=== PATIENT | female | born 1935 | race Caucasian/White ===

== ENCOUNTER → 2017-10-12 | Outpatient (CLI) | payer MEDICARE, BC ==
[~2017-10-12] MED LIST: ALEV220T14 PO; ALPH200C3 PO; ALPH600C PO; ASPI-183 PO; ASPI325T33 PO; BOSW5TAB PO; CARV12.52 OR; CARV12.52 PO; CARV6.252 OR; CARV6.252 PO; COMMODE 3-IN-11 MIS; DIAZ5TAB PO; DOCU1CAP39 PO; EZET10 PO; FISH500C PO; FOLI800T PO; GABA300C3 PO; GABA300C5 PO; GLUCTAB OR; HYDR-3583 PO; LISI10TA3 PO; MAGN250T11 PO; MAGN500T4 PO; METF500T PO; MULT-116 PO; MULT-65 PO; MULT1TAB46 PO; NAPR1TAB98 PO; NORC7.5T PO; POLY17S PO; PROBCAP15 PO; RIVA10 PO; VITA200017 PO; WALKER WHEELS/F1 MIS; Z.0.COMMODE-3:1; Z.0.WALKERFRONT; [UNRECOGNIZED DRUG - CODE] PO
[2017-10-12 08:42] LABS: AUTOMATED NEUTROPHIL # 4.2 TH/MM3 (1.8-7.7); BASOPHIL # 0.2 TH/MM3 (0-0.2); BASOPHIL % 2.5 % (0.0-2.0); EOSINOPHIL # 0.5 TH/MM3 (0-0.4); EOSINOPHIL % 7.3 % (0.0-4.0); HEMATOCRIT 39.8 % (35.0-46.0); HEMOGLOBIN 13.5 GM/DL (11.6-15.3); MEAN CELL VOLUME 89.9 FL (80.0-100.0); MEAN CORPUSCULAR HEMOGLOBIN 30.4 PG (27.0-34.0); MEAN CORPUSCULAR HGB CONC 33.9 % (32.0-36.0); MEAN PLATELET VOLUME 7.9 FL (7.0-11.0); MONO % 8.4 % (0.0-8.0); MONOCYTE # 0.5 TH/MM3 (0-0.9); NEUT % 66.8 % (16.0-70.0); PLATELET COUNT 238 TH/MM3 (150-450); RED BLOOD COUNT 4.42 MIL/MM3 (4.00-5.30); RED CELL DISTRIBUTION WIDTH 14.1 % (11.6-17.2); WHITE BLOOD COUNT 6.3 TH/MM3 (4.0-11.0)
[2017-10-12 08:43] LABS: PROTHROMBIN TIME - PATIENT 10.4 SEC (9.8-11.6)
[2017-10-12 08:57] LABS: BICARBONATE 31.5 MEQ/L (21.0-32.0); CALCIUM 8.9 MG/DL (8.5-10.1); CREATININE 0.87 MG/DL (0.50-1.00)
[2017-10-12 10:29] LABS: BILIRUBIN, URINE NEG (NEG); BLOOD, URINE NEG (NEG); GLUCOSE,URINE NEG (NEG); KETONE, URINE NEG (NEG); MUCUS URINE FEW /lpf (OCC); NITRITE,URINE NEG (NEG); PH, URINE 7.5 (5.0-8.5); URINE COLOR YELLOW (YELLW/STRAW); URINE LEUKOCYTE ESTERASE NEG (NEG)
--- NOTE | 2017-10-13 08:58 | EKG ---
Date Performed: 10/12/2017 Time Performed: 08:26:18 PTAGE: 82 years EKG: ELECTRONIC VENTRICULAR PACEMAKER ABNORMAL RHYTHM ECG PREVIOUS TRACING : 03/20/2016 09.10 DOCTOR: Micki Cantu Interpretating Date/Time 10/13/2017 08:58:14
== END ==
LOC: CPRE 07:49
PROVIDERS: ATTEND Orthopaedic Surgery Orthopaedic Surgery of the Spine
DX: Z01.812 Encounter for preprocedural laboratory examination (principal); Z01.810 Encounter for preprocedural cardiovascular examination; M16.0 Bilateral primary osteoarthritis of hip; R94.31 Abnormal electrocardiogram [ECG] [EKG]; Z95.0 Presence of cardiac pacemaker
CPT/HCPCS: 36415; 80048; 81001; 85025; 85610; 85730; 93005

== ENCOUNTER 2017-10-23 06:17 | Inpatient (IN) | payer MEDICARE, BC ==
[~2017-10-23] VITALS: Ht 167.6 cm; Wt 72.0 kg
[~2017-10-23 06:17] MED LIST changes: -ALPH200C3 PO; -ASPI325T33 PO; -BOSW5TAB PO; -CARV12.52 OR; -CARV6.252 OR; -COMMODE 3-IN-11 MIS; -DOCU1CAP39 PO; -EZET10 PO; -FISH500C PO; -GABA300C3 PO; -GLUCTAB OR; -HYDR-3583 PO; -MAGN500T4 PO; -MULT-65 PO; -NORC7.5T PO; -POLY17S PO; -RIVA10 PO; -VITA200017 PO; -WALKER WHEELS/F1 MIS; -Z.0.COMMODE-3:1; -Z.0.WALKERFRONT
[2017-10-23] MEDS ORDERED: SODIUM CHLORID 0.9% 500 ML IV PRN (07:15)
[2017-10-23] MEDS ORDERED: LACTATED RINGER'S 1000 ML IV PRN (07:15)
[2017-10-23] MEDS ORDERED: CHLORHEXIDINE GLUCONATE 2 % 1 PACK (2 CLOTHS) TOPICAL PRN (07:15)
[2017-10-23] MEDS ORDERED: ceFAZolin 2 GM PREMIX 50 ML IV SCH (07:15)
[2017-10-23] MEDS ORDERED: CHLORHEXIDINE GLUCONATE 4% SOLN 120 ML BTL TOPICAL SCH (07:15)
[2017-10-23] MEDS ORDERED: VANCOMYCIN 1 GM/200 ML PREMIX ON-CALL IV SCH (07:15)
[2017-10-23] MEDS ORDERED: METOPROLOL TARTRATE 25 MG TAB PO PRN (07:15)
[2017-10-23] MEDS ORDERED: POVIDONE IODINE 5% (ANTISEPSIS KIT) 4 APPLICATIONS EACH NARE PRN (07:15)
[2017-10-23] MEDS ORDERED: ACETAMINOPHEN 1000 MG/100 ML 100 ML IV ONE (07:48)
[2017-10-23] MEDS ORDERED: GENTAMICIN SULFATE 80 MG/2 ML VIAL ONE ×2 (08:42)
[2017-10-23] MEDS ORDERED: EXPAREL PERI-ARTICULAR INJECTION (TOTAL VOL. 60 ML) P-ARTICULR SCH ×2 (09:00)
[2017-10-23] MEDS ORDERED: SODIUM CHLORIDE 0.9% IV SCH (09:00)
[2017-10-23] MEDS ORDERED: TRANEXAMIC ACID IV SCH (09:00)
[2017-10-23] MEDS ORDERED: ceFAZolin INJ 1,000 MG VIAL ONE (09:21)
[2017-10-23] MEDS ORDERED: BUPIVACAINE/EPINEPHRINE 0.25% PF 10 ML VIAL INFIL ONE (11:05)
--- NOTE | 2017-10-23 11:33 | PD.OP ---
cc: Reg Camacho MD Operative Report Date of Surgery: October 23, 2017 Preoperative Diagnosis: Osteoarthritis right hip Postoperative Diagnosis: Same Procedure: Right total hip replacement arthroplasty, direct anterior exposure Anesthesia: General Surgeon: Reg Camacho [employer] Teacher(s): TREMAINE Peters Operation and Findings: EBL: 300 cc INDICATION: This patient presents with significant hip pain related to severe osteoarthritis of the right hip. Despite extensive conservative care this patient continues to be painful and now presents for surgical treatment. NOTE: Jaylene Peters PA-C was present for the entire surgical procedure as my assistant food service manager. In my medical opinion her skill and care was necessary for the proper management of this patient. COMPONENTS: COMPANY: [employer] CUP: [place], 50, 100 series, gription surface LINER: Altrx 32 mm, neutral STEM: [place], standard offset, size 12, hydroxyapatite-coated HEAD: 32 mm, +1, metal, 12/14 taper PROCEDURE: This patient was brought to the operating room and anesthetized in the supine position and positioned on the fracture table with both legs held extended. The right hip and leg was scrubbed with alcohol followed by Hibiclens followed by ChloraPrep and draped sterilely. Antibiotics were given within routine time window and a timeout was done. A 4 inch incision was made starting 2 cm distal and 2 cm lateral to the anterior superior iliac spine. The fascia elli was opened longitudinally. The interval between the fascia elli and the rectus was opened down to the capsule of the hip joint. Retractors were positioned allowing good visualization of the capsule. This was opened longitudinally and flaps were created. Stay sutures were utilized. Exposure was excellent. The neck was cut at the proper location using fluoroscopy as a guide. The head was removed. Deep retractors were positioned allowing good visualization of the acetabulum. Acetabulum was deepened down to the floor starting with a proper size reamer and reaming up to 49 mm. A trial was utilized. Fluoroscopy was used to check position and confirmed satisfactory alignment. The rim was reamed with a 50 mm reamer and the final cup was positioned in approximately 20 of anteversion and 40-45 of abduction. Position was satisfactory. A single hole eliminator was positioned followed by the final liner. The lifting hook was utilized. The leg was dropped to the floor, maximally externally rotated and brought across the midline. Retractors were positioned. A box osteotome was utilized followed by progressive broaching to the proper stem size. Trial reduction showed excellent alignment and fit. With 60 of external rotation the leg was dropped to the floor without evidence of anterior subluxation. The wound was irrigated. The final stem was inserted and was found to be very stable. The final reduction using the final head. Stability was as previously noted. Intraoperative x-rays were taken. The wound was irrigated copiously. Hemostasis was controlled. Local anesthesia was utilized. The capsule was repaired with #2 Tycron sutures. The fascia elli was repaired with running 0 PDS on a loop. Subcutaneous tissue was approximated with 2-0 Vicryl and skin with running intradermal 3-0 Vicryl followed by Steri-Strips. A sterile dressing was applied. The patient was awakened and taken to the recovery room in satisfactory condition. FINDINGS: There was severe osteoarthritis of the right hip. The final solution was excellent. There was no apparent complication. The hip appeared to be very stable Reg Camacho MD October 23, 2017 11:33
[2017-10-23] MEDS ORDERED: HYDR-3583 PO (11:38)
[2017-10-23] MEDS ORDERED: ASPI325T33 PO (11:38)
[2017-10-23] MEDS ORDERED: ACETAMINOPHEN/HYDROcodone 325 MG/10 MG TAB PO PRN (11:45)
[2017-10-23] MEDS ORDERED: Post-op Orders (for Pharmacy) XX ONE (11:45)
[2017-10-23] MEDS ORDERED: MORPHINE SULFATE 8 MG/ML INJ IM PRN (11:45)
[2017-10-23] MEDS ORDERED: NALOXONE HCL 0.4 MG/ML AMP IV PUSH PRN (11:45)
[2017-10-23] MEDS ORDERED: DO NOT ADM ANY ANTICOAGULANT DRUGS PRN (11:52)
[2017-10-23] MEDS ORDERED: SODIUM CHLOR 0.9% 250 ML INJ 250 ML IV ONE (12:00)
[2017-10-23] MEDS ORDERED: LACTATED RINGER'S 1000 ML INJ 1,000 ML IV ONE (12:00)
[2017-10-23] MEDS ORDERED: NEOSTIGMINE 5 MG/5 ML SYRINGE IV PUSH ONE (12:00)
[2017-10-23] MEDS ORDERED: ONDANSETRON HCL 4 MG/2 ML VIAL IV ONE (12:00)
[2017-10-23] MEDS ORDERED: PROPOFOL 200 MG/20 ML AMP IV ONE (12:00)
[2017-10-23] MEDS ORDERED: PHENYLEPHRINE HCL 10 MG/ML VIAL IV ONE (12:00)
[2017-10-23] MEDS ORDERED: ePHEDrine/NS 25 MG/5 ML SYRINGE IV ONE (12:00)
[2017-10-23] MEDS ORDERED: GLYCOPYRROLATE 1 MG/5 ML SYRINGE IV PUSH ONE (12:00)
[2017-10-23] MEDS ORDERED: KETOROLAC TROMETHAMINE 30 MG/ML (IVP) VIAL IV PUSH ONE (12:00)
[2017-10-23] MEDS ORDERED: DEXAMETHASONE SOD PHOS 4 MG/ML VIAL IV ONE (12:00)
[2017-10-23] MEDS ORDERED: ROCURONIUM INJ 50 MG/5 ML SYRINGE IV PUSH ONE (12:00)
[2017-10-23] MEDS ORDERED: LIDOCAINE HCL 1% PF 5 ML SYRINGE OTHER ONE (12:00)
[2017-10-23] MEDS ORDERED: PHENYLEPH/NS 1000 MCG/10 ML SYR IV ONE (12:00)
[2017-10-23] MEDS ORDERED: MORPHINE SULFATE 4 MG/ML INJ ONE (12:04)
[2017-10-23] MEDS ORDERED: *morphine SULFATE 4 MG/ML PERIprocedure ONLY ONE ×2 (12:11→12:58)
[2017-10-23] MEDS: LACTATED RINGER'S 1000 ML INJ 1,000 ML IV SCH (13:00)
--- NOTE | 2017-10-23 13:39 | RADRPT ---
EXAM DATE/TIME: 10/23/2017 10:21 [place] COMPARISON: No previous studies available for comparison. INDICATIONS : Right total hip replacement. MEDICAL HISTORY : None. SURGICAL HISTORY : None. ENCOUNTER: Initial ACUITY: 1 day PAIN SCORE: Non-responsive. LOCATION: Right Hip FINDINGS: 2 fluoroscopic images of the right hip demonstrate a total right hip arthroplasty. Arthroplasty compo nents appear well positioned and in anatomic alignment. No gross fracture. CONCLUSION: 1. Right hip arthroplasty, as above. Giorgio Marshall MD on October 23, 2017 at 13:36 Board Certified Radiologist. This report was verified electronically.
[2017-10-23] MEDS ORDERED: ASPIRIN 81 MG CHEW TAB CHEW ONE (14:00)
[2017-10-23 16:00] VITALS: BP 125/60; PULSE 52; RESP 18; TEMP 97.1; O2SAT 92
[2017-10-23] MEDS: metFORMIN HCL 500 MG TAB PO SCH (17:08)
[2017-10-23 20:32] VITALS: BP 125/70; PULSE 71; RESP 18; TEMP 97.6; O2SAT 94
[2017-10-23] MEDS: SENNOSIDES 8.6 MG TAB PO SCH (20:37)
[2017-10-23] MEDS: CARVEDILOL 6.25 MG TAB PO SCH (20:37)
[2017-10-23] MEDS: ASPIRIN EC 81 MG TABEC PO SCH (20:37)
[2017-10-23] MEDS: MAGNESIUM HYDROXIDE SUSP 30 ML CUP PO SCH (20:37)
[2017-10-23] MEDS ORDERED: LISINOPRIL 10 MG TAB PO SCH (21:00)
[2017-10-23] MEDS ORDERED: DIAZEPAM 5 MG TAB PO PRN (21:00)
[2017-10-23] MEDS: TEMAZEPAM 15 MG CAP PO PRN (23:32)
[2017-10-23 23:39] VITALS: BP 116/55; PULSE 74; RESP 18; TEMP 98.3; O2SAT 95
[2017-10-24] MEDS: LACTATED RINGER'S 1000 ML INJ 1,000 ML IV SCH (00:04)
[2017-10-24 05:24] VITALS: BP 100/62; PULSE 97; RESP 18; TEMP 97.9; O2SAT 96
[2017-10-24] MEDS: ACETAMINOPHEN/HYDROcodone 325 MG/10 MG TAB PO PRN ×2 (05:48→11:39)
[2017-10-24 07:02] LABS: HEMATOCRIT 31.3 % (35.0-46.0); HEMOGLOBIN 10.7 GM/DL (11.6-15.3)
[2017-10-24 08:00] VITALS: BP 101/55; PULSE 90; RESP 16; TEMP 98.7; O2SAT 91
[2017-10-24] MEDS ORDERED: WALKER WHEELS/F1 MIS (08:31)
[2017-10-24] MEDS ORDERED: COMMODE 3-IN-11 MIS (08:31)
--- NOTE | 2017-10-24 08:32 | HHI.DCPOC ---
Discharge Care Plan Diagnosis: (1) Osteoarthritis of right hip Your Health Problems Are: Difficulty with ADL Incision/Drains Swelling Goals to Promote Your Health * To prevent worsening of your condition and complications * To maintain your health at the optimal level Directions to Meet Your Goals Take your medications as prescribed Follow your dietary instruction Follow activity as directed Keep your appointments as scheduled Take your immunizations and boosters as scheduled If your symptoms worsen call your PCP, if no PCP go to Urgent Care Center or Emergency Room Smoking is Dangerous to Your Health. Avoid second hand smoke Call the 24-hour hour crisis hotline for domestic abuse at Jaylene Peters October 24, 2017 08:32
[2017-10-24] MEDS: GABAPENTIN 300 MG CAP PO SCH (08:49)
[2017-10-24] MEDS: metFORMIN HCL 500 MG TAB PO SCH ×2 (08:50→18:23)
[2017-10-24] MEDS: ASPIRIN EC 81 MG TABEC PO SCH ×2 (08:50→19:54)
[2017-10-24] MEDS: CARVEDILOL 12.5 MG TAB PO SCH (08:50)
[2017-10-24] MEDS: MAGNESIUM HYDROXIDE SUSP 30 ML CUP PO SCH ×2 (08:50→19:53)
[2017-10-24 12:00] VITALS: BP 112/66; PULSE 86; RESP 16; TEMP 97.4; O2SAT 92
--- NOTE | 2017-10-24 13:00 | PD.ORT.PN ---
Subjective Subjective Remarks Quite a bit of right hip pain last night. Patient states she did not 'sleep at all'. No new leg pain below knee. No other concerns. Prefers [facility]. No new CP or SOB. Objective Vitals Vital Signs Date Time Temp Pulse Resp B/P (MAP) Pulse Ox O2 Delivery O2 Flow Rate FiO2 10/24/17 08:00 98.7 90 16 101/55 (70) 91 10/24/17 06:48 18 10/24/17 05:24 97.9 97 18 100/62 (75) 96 10/24/17 00:32 18 10/23/17 23:39 98.3 74 18 116/55 (75) 95 10/23/17 20:32 97.6 71 18 125/70 (88) 94 10/23/17 18:49 Nasal Cannula 2.00 10/23/17 17:11 Nasal Cannula 2.00 10/23/17 16:00 97.1 52 18 125/60 (81) 92 10/23/17 14:30 97.6 63 16 116/58 (77) 97 Nasal Cannula 3 10/23/17 14:00 62 16 118/57 (77) 96 Nasal Cannula 3 10/23/17 13:03 15 10/23/17 13:00 97.6 61 16 120/56 (77) 96 Nasal Cannula 3 I/O 10/23/17 10/23/17 10/23/17 10/24/17 10/24/17 10/24/17 07:00 15:00 23:00 07:00 15:00 23:00 Intake Total 2000 ml 100 ml 460 ml Output Total 300 ml 25 ml Balance 1700 ml 75 ml 460 ml Intake Oral 360 ml IV Total 200 ml 100 ml 100 ml Other 1800 ml Output Urine Total 25 ml Estimated Blood Loss 300 ml # Voids 0 3 # Bowel Movements 0 Result Diagram: 10/24/17 0424 Objective Remarks Sitting up in bedside chair NAD VSS RLE Hip dressing c/d/i, mild swelling, no erythema, +motor at distal, +sens, +nvi Neg homans Assessment & Plan Ortho Post Op Day #: 1 Problem List: Assessment and Plan pod#1 s/p R YOSHI, anterior Pain moderately controlled. Some spasms. PT - WBAT RLE. Anterior YOSHI protocol. Hold dressing changes unless saturated. PO pain meds ASA 81mg IS encouraged. D/C planning, [facility] sunday. Jaylene Peters October 24, 2017 13:00
[2017-10-24 15:45] LABS: AUTOMATED NEUTROPHIL # 10.2 TH/MM3 (1.8-7.7); BASOPHIL # 0.1 TH/MM3 (0-0.2); BASOPHIL % 0.4 % (0.0-2.0); EOSINOPHIL # 0.1 TH/MM3 (0-0.4); EOSINOPHIL % 0.7 % (0.0-4.0); HEMATOCRIT 30.3 % (35.0-46.0); HEMOGLOBIN 10.1 GM/DL (11.6-15.3); LYMPHOCYTE # 1.3 TH/MM3 (1.0-4.8); MEAN CELL VOLUME 90.3 FL (80.0-100.0); MEAN CORPUSCULAR HEMOGLOBIN 30.2 PG (27.0-34.0); MEAN CORPUSCULAR HGB CONC 33.5 % (32.0-36.0); MEAN PLATELET VOLUME 7.9 FL (7.0-11.0); MONO % 9.3 % (0.0-8.0); MONOCYTE # 1.2 TH/MM3 (0-0.9); NEUT % 79.6 % (16.0-70.0); PLATELET COUNT 199 TH/MM3 (150-450); RED BLOOD COUNT 3.36 MIL/MM3 (4.00-5.30); RED CELL DISTRIBUTION WIDTH 14.3 % (11.6-17.2); WHITE BLOOD COUNT 12.9 TH/MM3 (4.0-11.0)
--- NOTE | 2017-10-24 15:50 | PD.CONS ---
HPI Service Family Medicine Consult Requested By Reason for Consult Medical management Primary Care Physician Violet Rosenthal M.D. History of Present Illness Patient is a 82-year-old female with past medical history of diabetes, hypertension, left bundle branch block status post defibrillator/pacemaker placement presented to [facility] for elective right hip replacement. Patient is postop day 1 from elective right total hip replacement arthroplasty. Patient seen and examined at bedside this afternoon. Patient stated right hip pain is currently 5/10, worse with movement. However she was not able to sleep due to severe right hip pain last night. Denies any chest pain, shortness of breath, nausea /vomiting. Denies any flatus, bowel movement. Patient has voided 3 times so far. Tolerating fluids well. No other complaints. (Leny Blair MD, R1) Review of Systems Constitutional: DENIES: Fever, Chills, Dizziness Endocrine: DENIES: Heat/cold intolerance Eyes: DENIES: Blurred vision, Vision loss Ears, nose, mouth, throat: DENIES: Hearing loss, Ear Pain Respiratory: DENIES: Cough, Shortness of breath Cardiovascular: DENIES: Chest pain, Palpitations, Syncope, Lower Extremity Edema Gastrointestinal: DENIES: Abdominal pain, Diarrhea, Nausea, Vomiting Genitourinary: DENIES: Urinary frequency, Dysuria Musculoskeletal: COMPLAINS OF: Joint pain, DENIES: Back pain, Neck pain Integumentary: DENIES: Rash Neurologic: COMPLAINS OF: Paresthesias (Lower extremities bilaterally, chronic) , DENIES: Headache, Localized weakness, Seizures (Leny Blair MD, R1) Past Family Social History Past Medical History Neuropathy bilaterally Hypertension Diabetes Left bundle branch block Left breast cancer, currently in remission Osteoarthritis of knees bilaterally Past Surgical History Left total hip replacement, 2016 Pacemaker/defibrillator placement Hysterectomy (Leny Blair MD, R1) Allergies: Coded Allergies: No Known Allergies (Unverified Allergy, Unknown, 10/23/17) Active Ordered Medications Reported Meds & Active Scripts Active Hydrocodone-Acetamin 10-325 mg (Hydrocodone/Acetaminophen) 10 Mg-325 Mg Tablet 1 Tab PO Q4H PRN Aspirin EC (Aspirin) 325 Mg Tabdr 81 Mg PO BID Reported Abhishek Mag Zinc + D3 (Multiple Vitamins W/ Minerals) 1 Tab 1 Tab PO DAILY OSTEO BONE BUILDER EQUIVALENT Aleve Arthritis (Naproxen Sodium) 220 Mg Tab 220 Mg PO DIRECTED PRN AFTERNOONS Diazepam 5 Mg Tab 5 Mg PO HS PRN Aleve PM (Naproxen Sodium-Diphenhydramine) 220-25 Mg Tab 2 Tab PO HS PRN Aspirin 325 Mg Tab 325 Mg PO DAILY Folic Acid 0.8 Mg Tab 800 Mcg PO DAILY Trubiotics (Probiotic Product) 1.5 Billion Cell Cap 1 Cap PO DAILY Magnesium Oxide 250 Mg Tab 250 Mg PO DIRECTED Alpha Lipoic Acid 600 Mg Cap 600 Mg PO TID NEUROPATHY Multi Vitamin Daily (Multiple Vitamin) 1 Tab Tab 1 Tab PO DAILY Fish Oil Concentrate (Balm-3 Fatty Acids) 1,000 Mg Capsule 1 Cap PO DAILY Gabapentin 300 Mg Cap 900 Mg PO DAILY Metformin (Metformin HCl) 500 Mg Tab 500 Mg PO BIDPC Lisinopril 10 Mg Tab 10 Mg PO HS Carvedilol 12.5 Mg Tab 12.5 Mg PO DAILY Carvedilol 6.25 Mg Tab 6.25 Mg PO HS Family History Father: Disseminated cancer, primary likely colon ca, at age 78 Mother: Diabetes and hypertension Social History Patient lives at home with her . Denies smoking, alcohol or illicit drug use. Patient states that sometimes she uses cane at home to ambulate, but normally "holds on to things around her home" to get around. Denies any falls but has had "close calls". Outside of her home she is able to ambulate only with assistance of her otherwise she feels off balance. Patient with limited ADLs. Patient has a tentering machine feeder that comes in once a week to help with cleaning at home. does the cooking at home. (Leny Blair MD, R1) Physical Exam Vital Signs Vital Signs Date Time Temp Pulse Resp B/P (MAP) Pulse Ox O2 Delivery O2 Flow Rate FiO2 10/24/17 12:45 18 10/24/17 12:00 97.4 86 16 112/66 (81) 92 10/24/17 08:00 98.7 90 16 101/55 (70) 91 10/24/17 05:24 97.9 97 18 100/62 (75) 96 10/24/17 00:32 18 10/23/17 23:39 98.3 74 18 116/55 (75) 95 10/23/17 20:32 97.6 71 18 125/70 (88) 94 10/23/17 18:49 Nasal Cannula 2.00 10/23/17 17:11 Nasal Cannula 2.00 10/23/17 16:00 97.1 52 18 125/60 (81) 92 Physical Exam GENERAL: This is a well-nourished, well-developed patient, sitting in chair in no apparent distress. SKIN: No rashes, ecchymoses or lesions. Cool and dry. HEAD: Atraumatic. Normocephalic. EYES: Pupils equal round and reactive. Extraocular motions intact. No scleral icterus. No injection or drainage. ENT: Nose without bleeding, purulent drainage or septal hematoma. Throat without erythema, tonsillar hypertrophy or exudate. Uvula midline. Airway patent. NECK: Trachea midline. No JVD or lymphadenopathy. Supple, nontender, no meningeal signs. CARDIOVASCULAR: Normal S1 and S2. Regular rate and rhythm without murmurs, gallops, or rubs. RESPIRATORY: Mild atelectasis on Right lung base, otherwise CTA BL. No wheezes , rales, or rhonchi. GASTROINTESTINAL: Abdomen soft, non-tender, nondistended. No hepato-splenomegaly , or palpable masses. No guarding. MUSCULOSKELETAL: Extremities without clubbing, cyanosis, or edema. No joint tenderness, effusion, or edema noted. No calf tenderness BL. +1 Posterior tibial pulse on Right LE. +1 DP pulse on Left LE. Dressing on Right hip c/d/i. NEUROLOGICAL: Awake and alert. Sensory grossly within normal limits. 4/5 strength of Left LE. 3/5 strength of Right LE, limited by pain. Normal speech. Laboratory Laboratory Tests Test 10/24/17 04:24 10/24/17 15:17 Hemoglobin 10.7 10.1 Hematocrit 31.3 30.3 White Blood Count 12.9 Red Blood Count 3.36 Mean Corpuscular Volume 90.3 Mean Corpuscular Hemoglobin 30.2 Mean Corpuscular Hemoglobin Concent 33.5 Red Cell Distribution Width 14.3 Platelet Count 199 Mean Platelet Volume 7.9 Neutrophils (%) (Auto) 79.6 Lymphocytes (%) (Auto) 10.0 Monocytes (%) (Auto) 9.3 Eosinophils (%) (Auto) 0.7 Basophils (%) (Auto) 0.4 Neutrophils # (Auto) 10.2 Lymphocytes # (Auto) 1.3 Monocytes # (Auto) 1.2 Eosinophils # (Auto) 0.1 Basophils # (Auto) 0.1 CBC Comment DIFF FINAL Differential Comment (Leny Blair MD, R1) Result Diagram: 10/24/17 1517 Imaging Last Impressions Hip X-Ray 10/23/17 0000 Signed Impressions: Service Date/Time: Monday, October 23, 2017 10:21 - CONCLUSION: 1. Right hip arthroplasty, as above. Giorgio Marshall MD (Leny Blair MD, R1) Assessment and Plan Assessment and Plan Patient is a 82-year-old female with past medical history of diabetes, hypertension, left bundle branch block status post defibrillator/pacemaker placement with: Code Status full code Discussed Condition With SWLilly Brown (Leny Blair MD, R1) Attending Attestation The patient has been seen and examined. The chart and all resident notes have been reviewed. I agree that inpatient care is appropriate and that a two midnight stay is expected for the reasons documented in the resident history and physical. I have discussed this with the resident and certify the resident s order for inpatient admission. Patient seen and examined on 10/24/17. Case reviewed and discussed Please refer to resident H&P for further details regarding HPI, ROS, PMH, SurgHx , FH and SocHx. In summary, patient is a pleasant 82yoF with a history of CAD and LBBB s/p PM placement, DM with severe peripheral neuropathy, OA, admitted for R hip replacement. She is seen in the chair today complaining of leg pain. States she didn't sleep last night. GENERAL: wdwn female, resting SKIN: Warm and dry. No rashes, lesions. HEAD: Normocephalic. AT EYES: No scleral icterus. No injection or drainage. ENT: OP clear. MMM NECK: Supple, trachea midline. No JVD or lymphadenopathy. CARDIOVASCULAR: Regular rate and rhythm without audible murmurs, gallops, or rubs. PM over anterior chest. RESPIRATORY: Breath sounds equal and clear bilaterally. No accessory muscle use. GASTROINTESTINAL: Abdomen soft, non-tender, nondistended. Hypoactive BS. MUSCULOSKELETAL: No cyanosis. There is significant peripheral neuropathy bilateral LE. Mild edema post-op. NV intact distal to surgical site. BACK: Nontender without obvious deformity. No CVA tenderness. NEURO: Awake and alert. Normal speech. Neuropathy as noted. A/P: 82yoF with: R hip replacement. Uncontrolled DM HTN CAD, LBB s/p PM placement Severe peripheral neuropathy Leukocytosis OA Insomnia Surgical intervention with orthopedics PT- patient will benefit from rehab due to severe neuropathy Care with anti-hypertensives given low BPs Advise SSI with accuchecks, glucose uncontrolled Monitor leukocytosis, infectious work-up if fever develops Anemia, trend cbc Patient seen and examined. Case reviewed and discussed Agree with plan of care as discussed with me and documented in the resident note. (Jessica Brown MD) Problem List: (1) Status post right hip replacement ICD Codes: Z96.641 - Presence of right artificial hip joint Status: Acute Plan: Patient is postop day 1 from right total hip replacement arthroplasty. c/w physical therapy and Occupational Therapy Pain control: IV Tylenol Q12hr Percocet p.o. Q6hr per pain scale Morphine 3 mg IV Q3h as needed for breakthrough pain (2) Osteoarthritis of right hip ICD Codes: M16.11 - Unilateral primary osteoarthritis, right hip Plan: See plan above (3) Neuropathy ICD Codes: G62.9 - Polyneuropathy, unspecified Status: Chronic Plan: Patient history of bilateral lower extremity neuropathy, worse at night Continue with gabapentin 900 daily (4) HTN (hypertension) ICD Codes: I10 - Essential (primary) hypertension Status: Chronic Plan: Stable Continue with home medication Monitor vital signs (5) Anemia ICD Codes: D64.9 - Anemia, unspecified Status: Acute Plan: H/H today .3 Continue to monitor (6) Impaired mobility and activities of daily living ICD Codes: Z74.09 - Other reduced mobility Status: Acute Plan: Continue with PT and OT (7) HLD (hyperlipidemia) ICD Codes: E78.5 - Hyperlipidemia, unspecified Status: Chronic Plan: Continue aspirin Balm fatty acid supplement held (8) DMII (diabetes mellitus, type 2) ICD Codes: E11.9 - Type 2 diabetes mellitus without complications Status: Chronic Plan: Blood glucose of 139 today, continue to monitor Continue with metformin 500 mg p.o. twice daily Bedside glucose checks Hypoglycemic protocol Low-dose sliding scale (9) Status post total hip replacement, left ICD Codes: Z96.642 - Presence of left artificial hip joint Status: Acute Plan: Patient with history of total left hip replacement done in 2016 (10) AICD (automatic cardioverter/defibrillator) present ICD Codes: Z95.810 - Presence of automatic (implantable) cardiac defibrillator Status: Chronic Plan: Stable Patient follows with wood barrel reconditioner Dr. Bee (11) History of breast cancer ICD Codes: Z85.3 - Personal history of malignant neoplasm of breast Status: Chronic Plan: Patient history of left breast cancer status post radiation chemotherapy Patient currently in remission (12) Left bundle branch block ICD Codes: I44.7 - Left bundle-branch block, unspecified Status: Chronic Plan: Stable (13) Leukocytosis ICD Codes: D72.829 - Elevated white blood cell count, unspecified Status: Acute Plan: Continue to monitor Follow-up repeat CBC in the morning (14) Nutrition, metabolism, and development symptoms ICD Codes: R63.8 - Other symptoms and signs concerning food and fluid intake Plan: Fluids: NS@ 100mls/hr Electrolytes: replete as needed, continue to monitor Nutrition: 2000 ADA carb diet DVT prophylaxis: Resume tonight, POD#1 lovenox 40mg QD (Leny Blair MD, R1) Problem Qualifiers (1) Osteoarthritis of right hip: Qualified Codes: M16.11 - Unilateral primary osteoarthritis, right hip Leny Blair MD, R1 October 24, 2017 15:50 Jessica Brown MD October 25, 2017 07:55
[2017-10-24 16:00] VITALS: BP 84/45; PULSE 73; RESP 16; TEMP 97.9; O2SAT 94
[2017-10-24 16:02] LABS: BICARBONATE 28.9 MEQ/L (21.0-32.0); CALCIUM 8.2 MG/DL (8.5-10.1); CREATININE 0.83 MG/DL (0.50-1.00)
[2017-10-24] MEDS ORDERED: MORPHINE SULFATE 4 MG/ML INJ IV PUSH PRN (17:00)
[2017-10-24] MEDS: oxyCODONE/ACETAMINOPHEN 10 MG/325 MG TAB PO PRN (18:24)
[2017-10-24] MEDS ORDERED: GLUCAGON 1 MG/ML VIAL OTHER PRN (18:30)
[2017-10-24] MEDS ORDERED: DEXTROSE 50% IN WATER 50 ML VIAL(D50) IV PUSH PRN (18:30)
[2017-10-24 19:45] VITALS: BP 88/51; PULSE 77; RESP 18; TEMP 98.2; O2SAT 94
[2017-10-24] MEDS: INSULIN ASPART SUPPLEMENTAL SCALE SQ SCH (19:52)
[2017-10-24] MEDS: ACETAMINOPHEN 1000 MG/100 ML 100 ML IV SCH (19:53)
[2017-10-24] MEDS: SODIUM CHLOR 0.9% 1000 ML INJ 1,000 ML IV SCH (19:53)
[2017-10-24] MEDS: SENNOSIDES 8.6 MG TAB PO SCH (19:54)
[2017-10-24] MEDS: ENOXAPARIN SODIUM 40 MG/0.4 ML SYRINGE SQ SCH (19:54)
[2017-10-24] MEDS: CARVEDILOL 6.25 MG TAB PO SCH (21:00)
[2017-10-24 22:35] VITALS: BP 101/49
[2017-10-25 00:01] VITALS: BP 113/61; PULSE 85; RESP 16; TEMP 98.8; O2SAT 95
[2017-10-25] MEDS: oxyCODONE/ACETAMINOPHEN 5 MG/325 MG TAB PO PRN ×2 (03:03→08:25)
[2017-10-25 04:00] VITALS: BP 112/56; PULSE 88; RESP 17; TEMP 98.4; O2SAT 95
[2017-10-25] MEDS: SODIUM CHLOR 0.9% 1000 ML INJ 1,000 ML IV SCH (05:00)
[2017-10-25 08:00] VITALS: BP 120/99; PULSE 87; RESP 18; TEMP 98.9; O2SAT 93
[2017-10-25] MEDS: INSULIN ASPART SUPPLEMENTAL SCALE SQ SCH ×4 (08:00→21:00)
[2017-10-25] MEDS: GABAPENTIN 300 MG CAP PO SCH (08:22)
[2017-10-25] MEDS: metFORMIN HCL 500 MG TAB PO SCH ×2 (08:22→17:29)
[2017-10-25] MEDS: CARVEDILOL 12.5 MG TAB PO SCH (08:23)
[2017-10-25] MEDS: ASPIRIN EC 81 MG TABEC PO SCH ×2 (08:23→19:50)
[2017-10-25] MEDS: MAGNESIUM HYDROXIDE SUSP 30 ML CUP PO SCH ×2 (08:26→19:51)
[2017-10-25] MEDS: ACETAMINOPHEN 1000 MG/100 ML 100 ML IV SCH ×2 (08:31→19:50)
[2017-10-25 08:37] LABS: AUTOMATED NEUTROPHIL # 6.5 TH/MM3 (1.8-7.7); BASOPHIL # 0.1 TH/MM3 (0-0.2); BASOPHIL % 0.7 % (0.0-2.0); EOSINOPHIL # 0.2 TH/MM3 (0-0.4); EOSINOPHIL % 2.2 % (0.0-4.0); HEMATOCRIT 30.3 % (35.0-46.0); HEMOGLOBIN 10.4 GM/DL (11.6-15.3); LYMPH % 13.8 % (9.0-44.0); LYMPHOCYTE # 1.2 TH/MM3 (1.0-4.8); MEAN CELL VOLUME 89.3 FL (80.0-100.0); MEAN CORPUSCULAR HEMOGLOBIN 30.5 PG (27.0-34.0); MEAN CORPUSCULAR HGB CONC 34.1 % (32.0-36.0); MONO % 9.7 % (0.0-8.0); MONOCYTE # 0.9 TH/MM3 (0-0.9); NEUT % 73.6 % (16.0-70.0); PLATELET COUNT 211 TH/MM3 (150-450); RED CELL DISTRIBUTION WIDTH 14.7 % (11.6-17.2); WHITE BLOOD COUNT 8.8 TH/MM3 (4.0-11.0)
--- NOTE | 2017-10-25 08:40 | PD.ORT.PN ---
Subjective Subjective Remarks Pain a little better. Still has residual right hip and thigh pain. No new leg pain below knee. No other concerns. Still trying to get admitted to [facility]. Case management is looking into option. No new CP or SOB. Objective Vitals Vital Signs Date Time Temp Pulse Resp B/P (MAP) Pulse Ox O2 Delivery O2 Flow Rate FiO2 10/25/17 04:00 98.4 88 17 112/56 (74) 95 10/25/17 00:01 98.8 85 16 113/61 (78) 95 10/24/17 22:35 101/49 (66) 10/24/17 20:00 Room Air 10/24/17 19:45 98.2 77 18 88/51 (63) 94 10/24/17 16:00 97.9 73 16 84/45 (58) 94 10/24/17 12:45 18 10/24/17 12:00 97.4 86 16 112/66 (81) 92 I/O 10/24/17 10/24/17 10/24/17 10/25/17 10/25/17 10/25/17 07:00 15:00 23:00 07:00 15:00 23:00 Intake Total 460 ml 600 ml 340 ml Balance 460 ml 600 ml 340 ml Intake Oral 360 ml 600 ml 340 ml IV Total 100 ml # Voids 3 2 3 # Bowel Movements 0 0 Result Diagram: 10/25/17 0756 10/24/17 1517 Objective Remarks Sitting up in bedside chair NAD VSS RLE Hip dressing c/d/i, mild swelling, no erythema, +motor at distal, +sens, +nvi Neg homans Assessment & Plan Ortho Post Op Day #: 2 Problem List: Assessment and Plan pod#2 s/p R YOSHI, anterior Pain moderately controlled. Some improvement. PT - WBAT RLE. Anterior YOSHI protocol. Hold dressing changes unless saturated. PO pain meds ASA 81mg IS encouraged. D/C planning, SNF sunday. Trying to get into [facility]. Jaylene Peters October 25, 2017 08:40
[2017-10-25 09:01] LABS: ALBUMIN 2.8 GM/DL (3.4-5.0); AST (GOT) 24 U/L (15-37); BICARBONATE 33.1 MEQ/L (21.0-32.0); BLOOD UREA NITROGEN 20 MG/DL (7-18); CHLORIDE 100 MEQ/L (98-107); CREATININE 0.74 MG/DL (0.50-1.00); GLOMERULAR FILTRATION RATE 75 ML/MIN (>89); GLUCOSE,RANDOM 101 MG/DL (74-106); SODIUM (NA) 135 MEQ/L (136-145)
[2017-10-25 09:02] LABS: ALT (GPT) 16 U/L (10-53)
--- NOTE | 2017-10-25 09:02 | HHI.DS ---
Discharge Summary Admission Date October 23, 2017 at 06:17 Discharge Date: October 26, 2017 Admitting Diagnosis see below Diagnosis: (1) Osteoarthritis of right hip Diagnosis: Principal ICD Codes: M16.11 - Unilateral primary osteoarthritis, right hip Procedures Right total hip arthroplasty, direct anterior approach Brief History This is a 82 year old female patient CBC/BMP: 10/25/17 0756 10/25/17 0756 Significant Findings Laboratory Tests Test 10/24/17 04:24 10/24/17 15:17 10/25/17 07:56 Hemoglobin 10.7 GM/DL (11.6-15.3) 10.1 GM/DL (11.6-15.3) 10.4 GM/DL (11.6-15.3) Hematocrit 31.3 % (35.0-46.0) 30.3 % (35.0-46.0) 30.3 % (35.0-46.0) White Blood Count 12.9 TH/MM3 (4.0-11.0) Red Blood Count 3.36 MIL/MM3 (4.00-5.30) 3.40 MIL/MM3 (4.00-5.30) Neutrophils (%) (Auto) 79.6 % (16.0-70.0) 73.6 % (16.0-70.0) Monocytes (%) (Auto) 9.3 % (0.0-8.0) 9.7 % (0.0-8.0) Neutrophils # (Auto) 10.2 TH/MM3 (1.8-7.7) Monocytes # (Auto) 1.2 TH/MM3 (0-0.9) Blood Urea Nitrogen 25 MG/DL (7-18) 20 MG/DL (7-18) Random Glucose 139 MG/DL (74-106) Calcium Level 8.2 MG/DL (8.5-10.1) 8.0 MG/DL (8.5-10.1) Sodium Level 133 MEQ/L (136-145) 135 MEQ/L (136-145) Chloride Level 97 MEQ/L (98-107) Estimat Glomerular Filtration Rate 66 ML/MIN (>89) 75 ML/MIN (>89) Albumin 2.8 GM/DL (3.4-5.0) Carbon Dioxide Level 33.1 MEQ/L (21.0-32.0) Anion Gap 2 MEQ/L (5-15) PE at Discharge Sitting up in bedside chair NAD VSS RLE Hip dressing c/d/i, mild swelling, no erythema, +motor at distal, +sens, +nvi Neg homans Pt Condition on Discharge: Stable Discharge Disposition: Discharge to SNF Discharge Instructions Diet Instructions: Diabetic Diet, High Fiber Diet Activities You Can Perform: Weight Bearing as [place]ector Activities to Avoid: Strenuous Activity Additional Activity Instruc.: Anterior YOSHI protocol New Medications: Commode 3-in-1 (Commode 3-in-1) 1 Mis Mis EA .XX DIRECTED, #1 0 Refills Walker with Front Wheels (Walker with Front Wheels) 1 Mis Mis EA .XX DIRECTED, #[address] (Aspirin EC) 325 Mg Tabdr 81 MG PO BID for Prevent Blood Clot, #60 TAB Hydrocodone/Acetaminophen (Hydrocodone-Acetamin 10-325 mg) 10 Mg-325 Mg Tablet 1 TAB PO Q4H PRN for Pain, #42 TAB Continued Medications: Alpha Lipoic Acid (Alpha Lipoic Acid) 600 Mg Cap 600 MG PO TID for Nutritional Supplement, CAP 0 Refills NEUROPATHY Carvedilol (Carvedilol) 6.25 Mg Tab 6.25 MG PO HS, #60 TAB 0 Refills Carvedilol (Carvedilol) 12.5 Mg Tab 12.5 MG PO DAILY, #60 TAB 0 Refills Diazepam (Diazepam) 5 Mg Tab 5 MG PO HS PRN for INSOMNIA, TAB 0 Refills Folic Acid (Folic Acid) 0.8 Mg Tab 800 MCG PO DAILY for Nutritional Supplement, TAB 0 Refills Gabapentin (Gabapentin) 300 Mg Cap 900 MG PO DAILY, #90 CAP 0 Refills Lisinopril (Lisinopril) 10 Mg Tab 10 MG PO HS, #30 TAB 0 Refills Magnesium Oxide (Magnesium Oxide) 250 Mg Tab 250 MG PO DIRECTED, TAB 0 Refills Metformin (Metformin) 500 Mg Tab 500 MG PO BIDPC for Blood Sugar Management, #60 TAB 0 Refills Multiple Vitamin (Multi Vitamin Daily) 1 Tab Tab 1 TAB PO DAILY for Nutritional Supplement Multiple Vitamins W/ Minerals (Abhishek Mag Zinc + D3) 1 Tab 1 TAB PO DAILY for Nutritional Supplement, TAB 0 Refills OSTEO BONE BUILDER EQUIVALENT Naproxen Sodium (Aleve Arthritis) 220 Mg Tab 220 MG PO DIRECTED PRN for PAIN , TAB AFTERNOONS Naproxen Sodium-Diphenhydramine (Aleve PM) 220-25 Mg Tab 2 TAB PO HS PRN for PAIN/SLEEP, TAB 0 Refills [place]-3 Fatty Acids (Fish Oil Concentrate) 1,000 Mg Capsule 1 CAP PO DAILY Probiotic Product (Trubiotics) 1.5 Billion Cell Cap 1 CAP PO DAILY Discontinued Medications: Aspirin (Aspirin) 325 Mg Tab 325 MG PO DAILY, #30 TAB 0 Refills Jaylene Peters October 25, 2017 09:02
[2017-10-25 09:04] LABS: ALKALINE PHOSPHATASE 55 U/L (45-117); TOTAL BILIRUBIN ADULT 0.3 MG/DL (0.2-1.0); TOTAL PROTEIN 6.9 GM/DL (6.4-8.2)
[2017-10-25 12:00] VITALS: BP 100/51; PULSE 80; RESP 18; TEMP 97.9; O2SAT 94
[2017-10-25 12:17] LABS: HEMOGLOBIN A1C 5.8 % (4.3-6.0)
[2017-10-25] MEDS: oxyCODONE/ACETAMINOPHEN 10 MG/325 MG TAB PO PRN (14:30)
--- NOTE | 2017-10-25 15:12 | HHI.FPPN ---
Subjective Remarks Delayed entry: Patient seen and examined this morning at bedside. No acute events overnight. Patient states she is passing gas. No BM yet. Her pain is well controlled on current medication regimen. Denies dizziness, chest pain, nausea or vomiting. (Leny Blair MD, R1) Objective Vitals Vital Signs Date Time Temp Pulse Resp B/P (MAP) Pulse Ox O2 Delivery O2 Flow Rate FiO2 10/25/17 12:00 97.9 80 18 100/51 (67) 94 10/25/17 08:00 98.9 87 18 120/99 (106) 93 10/25/17 04:00 98.4 88 17 112/56 (74) 95 10/25/17 00:01 98.8 85 16 113/61 (78) 95 10/24/17 22:35 101/49 (66) 10/24/17 20:00 Room Air 10/24/17 19:45 98.2 77 18 88/51 (63) 94 10/24/17 16:00 97.9 73 16 84/45 (58) 94 I/O 10/24/17 10/24/17 10/24/17 10/25/17 10/25/17 10/25/17 07:00 15:00 23:00 07:00 15:00 23:00 Intake Total 460 ml 600 ml 340 ml 720 ml Balance 460 ml 600 ml 340 ml 720 ml Intake Oral 360 ml 600 ml 340 ml 720 ml IV Total 100 ml # Voids 3 2 3 3 # Bowel Movements 0 0 0 (Leny Blair MD, R1) Result Diagram: 10/25/17 0756 10/25/17 0756 Objective Remarks GENERAL: This is a well-nourished, well-developed patient, sitting in chair in no apparent distress. SKIN: No rashes, ecchymoses or lesions. Cool and dry. HEAD: Atraumatic. Normocephalic. EYES: Pupils equal round and reactive. Extraocular motions intact. No scleral icterus. No injection or drainage. ENT: Nose without bleeding, purulent drainage or septal hematoma. Throat without erythema, tonsillar hypertrophy or exudate. Uvula midline. Airway patent. NECK: Trachea midline. No JVD or lymphadenopathy. Supple, nontender, no meningeal signs. CARDIOVASCULAR: Normal S1 and S2. Regular rate and rhythm without murmurs, gallops, or rubs. RESPIRATORY: Mild atelectasis at bases BL. No wheezes, rales, or rhonchi. GASTROINTESTINAL: Abdomen soft, non-tender, nondistended. No hepato-splenomegaly , or palpable masses. No guarding. MUSCULOSKELETAL: Extremities without clubbing, cyanosis, or edema. No joint tenderness, effusion, or edema noted. No calf tenderness BL. +1 Posterior tibial pulse on Right LE. +1 DP pulse on Left LE. Dressing on Right hip c/d/i. NEUROLOGICAL: Awake and alert. Sensory grossly within normal limits. 4/5 strength of Left LE. 3/5 strength of Right LE, limited by pain. Normal speech. (Leny Blair MD, R1) A/P Assessment and Plan Patient is a 82-year-old female with past medical history of diabetes, hypertension, left bundle branch block status post defibrillator/pacemaker placement with: (Leny Blair MD, R1) Attending Attestation Patient seen and examined. Case reviewed and discussed. Agree with plan of care as discussed with me and documented in the resident note. (Jessica Brown MD) Problem List: (1) Status post right hip replacement ICD Codes: Z96.641 - Presence of right artificial hip joint Status: Acute Plan: Patient is postop day 2 from right total hip replacement arthroplasty. c/w physical therapy and Occupational Therapy Pain control: IV Tylenol Q12hr Percocet p.o. Q6hr per pain scale Morphine 3 mg IV Q3h as needed for breakthrough pain (2) Osteoarthritis of right hip ICD Codes: M16.11 - Unilateral primary osteoarthritis, right hip Plan: See plan above (3) Neuropathy ICD Codes: G62.9 - Polyneuropathy, unspecified Status: Chronic Plan: Patient history of bilateral lower extremity neuropathy, worse at night Continue with gabapentin 900 daily (4) HTN (hypertension) ICD Codes: I10 - Essential (primary) hypertension Status: Chronic Plan: Stable 100s/50s lisinopril held due to low BP yesterday Carvedilol 12.5 mg QD decreased to 6.25 mg QD Continue with home medication Monitor vital signs (5) Anemia ICD Codes: D64.9 - Anemia, unspecified Status: Acute Plan: H/H today 10.4/30.3 Continue to monitor (6) Impaired mobility and activities of daily living ICD Codes: Z74.09 - Other reduced mobility Status: Acute Plan: Continue with PT and OT (7) HLD (hyperlipidemia) ICD Codes: E78.5 - Hyperlipidemia, unspecified Status: Chronic Plan: Continue aspirin [place] fatty acid supplement held (8) DMII (diabetes mellitus, type 2) ICD Codes: E11.9 - Type 2 diabetes mellitus without complications Status: Chronic Plan: Blood glucose of 200s range, continue to monitor Continue with metformin 500 mg p.o. twice daily Bedside glucose checks Hypoglycemic protocol Low-dose sliding scale (9) Status post total hip replacement, left ICD Codes: Z96.642 - Presence of left artificial hip joint Status: Acute Plan: Patient with history of total left hip replacement done in 2016 (10) AICD (automatic cardioverter/defibrillator) present ICD Codes: Z95.810 - Presence of automatic (implantable) cardiac defibrillator Status: Chronic Plan: Stable Patient follows with real estate teacher Dr. Bee (11) History of breast cancer ICD Codes: Z85.3 - Personal history of malignant neoplasm of breast Status: Chronic Plan: Patient history of left breast cancer status post radiation chemotherapy Patient currently in remission (12) Left bundle branch block ICD Codes: I44.7 - Left bundle-branch block, unspecified Status: Chronic Plan: Stable (13) Leukocytosis ICD Codes: D72.829 - Elevated white blood cell count, unspecified Status: Acute Plan: Continue to monitor Follow-up repeat CBC in the morning (14) Nutrition, metabolism, and development symptoms ICD Codes: R63.8 - Other symptoms and signs concerning food and fluid intake Plan: Fluids: not indicated, pt tolerating po Electrolytes: replete as needed, continue to monitor Nutrition: 2000 ADA carb diet DVT prophylaxis: lovenox 40mg QD (Leny Blair MD, R1) Problem Qualifiers (1) Osteoarthritis of right hip: Qualified Codes: M16.11 - Unilateral primary osteoarthritis, right hip Leny Blair MD, R1 October 25, 2017 15:12 Jessica Brown MD October 26, 2017 18:14
[2017-10-25 15:24] VITALS: BP 106/53; PULSE 83; RESP 18; TEMP 97.6
[2017-10-25] MEDS: ENOXAPARIN SODIUM 40 MG/0.4 ML SYRINGE SQ SCH (19:48)
[2017-10-25] MEDS: CARVEDILOL 6.25 MG TAB PO SCH (19:50)
[2017-10-25] MEDS: SENNOSIDES 8.6 MG TAB PO SCH (19:50)
[2017-10-25 20:00] VITALS: BP 121/57; PULSE 86; RESP 17; TEMP 98.3; O2SAT 96
[2017-10-26 00:01] VITALS: BP_SYST 122; BP_SYST 163; BP_DIAS 57; BP_DIAS 75; PULSE 84; PULSE 91; RESP 17; RESP 18; TEMP 98.2; TEMP 99.2; O2SAT 96; O2SAT 97
[2017-10-26] MEDS: oxyCODONE/ACETAMINOPHEN 10 MG/325 MG TAB PO PRN ×3 (00:09→15:50)
[2017-10-26] MEDS: TEMAZEPAM 15 MG CAP PO PRN (02:50)
[2017-10-26 04:00] VITALS: BP 129/62; PULSE 85; RESP 18; TEMP 98.8; O2SAT 94
[2017-10-26 08:00] VITALS: BP 113/58; PULSE 82; RESP 16; TEMP 98.3; O2SAT 95
--- NOTE | 2017-10-26 08:19 | PD.ORT.PN ---
Subjective Subjective Remarks Pain in hip continues to improve. She notes some numbness lateral thigh. No new radiating pain. No other concerns. Apparently she did not qualify for [facility]. Looking at PO rehab. Case management is looking into option. No new CP or SOB. Objective Vitals Vital Signs Date Time Temp Pulse Resp B/P (MAP) Pulse Ox O2 Delivery O2 Flow Rate FiO2 10/26/17 04:00 98.8 85 18 129/62 (84) 94 10/26/17 00:01 () 10/26/17 00:01 98.2 91 17 163/75 (104) 97 10/25/17 20:00 98.3 86 17 121/57 (78) 96 10/25/17 15:24 97.6 83 18 106/53 (70) 10/25/17 12:00 97.9 80 18 100/51 (67) 94 I/O 10/25/17 10/25/17 10/25/17 10/26/17 10/26/17 10/26/17 07:00 15:00 23:00 07:00 15:00 23:00 Intake Total 340 ml 720 ml 240 ml Balance 340 ml 720 ml 240 ml Intake Oral 340 ml 720 ml 240 ml # Voids 3 3 4 # Bowel Movements 0 0 Result Diagram: 10/25/17 0756 10/25/17 0756 Procedures Right total hip arthroplasty, direct anterior approach Objective Remarks Sitting up in bed NAD VSS RLE Hip dressing c/d/i, mild swelling, no erythema, +motor at distal, +sens (mild sensory loss lateral thigh) +nvi Neg homans Assessment & Plan Ortho Post Op Day #: 3 Problem List: (1) Osteoarthritis of right hip ICD Codes: M16.11 - Unilateral primary osteoarthritis, right hip Qualifiers: Qualified Codes: M16.11 - Unilateral primary osteoarthritis, right hip Assessment and Plan pod#3 s/p R YOSHI, anterior Pain moderately controlled. PO pain meds as needed. Ortho stable. Ok to d/c to SNF today. PT - WBAT RLE. Anterior YOSHI protocol. Hold dressing changes unless saturated. PO pain meds ASA 81mg IS encouraged. F/U in 2 weeks as scheduled. Jaylene Peters October 26, 2017 08:19
[2017-10-26] MEDS: metFORMIN HCL 500 MG TAB PO SCH (08:45)
[2017-10-26] MEDS: ACETAMINOPHEN 1000 MG/100 ML 100 ML IV SCH (08:46)
[2017-10-26] MEDS: GABAPENTIN 300 MG CAP PO SCH (08:46)
[2017-10-26] MEDS: ASPIRIN EC 81 MG TABEC PO SCH (08:46)
[2017-10-26] MEDS: MAGNESIUM HYDROXIDE SUSP 30 ML CUP PO SCH (08:47)
[2017-10-26] MEDS: INSULIN ASPART SUPPLEMENTAL SCALE SQ SCH ×2 (08:50→12:00)
[2017-10-26] MEDS ORDERED: CARVEDILOL 6.25 MG TAB PO SCH (09:00)
[2017-10-26] MEDS ORDERED: LACTULOSE SYRUP 20 GM/30 ML CUP PO ONE (10:45)
[2017-10-26 12:00] VITALS: BP 108/61; PULSE 74; RESP 17; TEMP 97.4; O2SAT 93
--- NOTE | 2017-10-26 12:21 | HHI.FPPN ---
Subjective Remarks Patient seen and examined at bedside. no acute events overnight. Patient has not had a BM yet, but she is passing flatus. Pain is well controlled. (Leny Blair MD, R1) Objective Vitals Vital Signs Date Time Temp Pulse Resp B/P (MAP) Pulse Ox O2 Delivery O2 Flow Rate FiO2 10/26/17 12:00 97.4 74 17 108/61 (77) 93 10/26/17 08:00 98.3 82 16 113/58 (76) 95 10/26/17 04:00 98.8 85 18 129/62 (84) 94 10/26/17 00:01 () 10/26/17 00:01 98.2 91 17 163/75 (104) 97 10/25/17 20:00 98.3 86 17 121/57 (78) 96 10/25/17 15:24 97.6 83 18 106/53 (70) I/O 10/25/17 10/25/17 10/25/17 10/26/17 10/26/17 10/26/17 07:00 15:00 23:00 07:00 15:00 23:00 Intake Total 340 ml 720 ml 240 ml Balance 340 ml 720 ml 240 ml Intake Oral 340 ml 720 ml 240 ml # Voids 3 3 4 # Bowel Movements 0 0 (Leny Blair MD, R1) Result Diagram: 10/25/17 0756 10/25/17 0756 Objective Remarks GENERAL: This is a well-nourished, well-developed patient, sitting in chair in no apparent distress. SKIN: No rashes, ecchymoses or lesions. Cool and dry. HEAD: Atraumatic. Normocephalic. EYES: Pupils equal round and reactive. Extraocular motions intact. No scleral icterus. No injection or drainage. ENT: Nose without bleeding, purulent drainage or septal hematoma. Throat without erythema, tonsillar hypertrophy or exudate. Uvula midline. Airway patent. NECK: Trachea midline. No JVD or lymphadenopathy. Supple, nontender, no meningeal signs. CARDIOVASCULAR: Normal S1 and S2. Regular rate and rhythm without murmurs, gallops, or rubs. RESPIRATORY: Mild atelectasis at bases BL. No wheezes, rales, or rhonchi. GASTROINTESTINAL: Abdomen soft, non-tender, nondistended. No hepato-splenomegaly , or palpable masses. No guarding. MUSCULOSKELETAL: Extremities without clubbing, cyanosis, or edema. No joint tenderness, effusion, or edema noted. No calf tenderness BL. +1 Posterior tibial pulse on Right LE. +1 DP pulse on Left LE. Dressing on Right hip c/d/i. NEUROLOGICAL: Awake and alert. Sensory grossly within normal limits. 4/5 strength of Left LE. 3/5 strength of Right LE. Normal speech. (Leny Blair MD, R1) A/P Assessment and Plan Patient is a 82-year-old female with past medical history of diabetes, hypertension, left bundle branch block status post defibrillator/pacemaker placement with: (Leny Blair MD, R1) Attending Attestation Patient seen and examined. Case reviewed and discussed Agree with plan of care as discussed with me and documented in the resident note. (Jessica Brown MD) Problem List: (1) Status post right hip replacement ICD Codes: Z96.641 - Presence of right artificial hip joint Status: Acute Plan: Patient is postop day 3 from right total hip replacement arthroplasty. Physical therapy: Pain control: Percocet p.o. Q6hr (2) Osteoarthritis of right hip ICD Codes: M16.11 - Unilateral primary osteoarthritis, right hip Plan: See plan above (3) Neuropathy ICD Codes: G62.9 - Polyneuropathy, unspecified Status: Chronic Plan: Patient history of bilateral lower extremity neuropathy, worse at night Continue with gabapentin 900 daily (4) HTN (hypertension) ICD Codes: I10 - Essential (primary) hypertension Status: Chronic Plan: Stable lisinopril held due to low BP Carvedilol 12.5 mg QD decreased to 6.25 mg QD Continue with carvedilol 6.25 mg BID upon discharge Monitor vital signs (5) Anemia ICD Codes: D64.9 - Anemia, unspecified Status: Acute Plan: H/H stable Continue to monitor (6) Impaired mobility and activities of daily living ICD Codes: Z74.09 - Other reduced mobility Status: Acute Plan: Continue with PT and OT (7) HLD (hyperlipidemia) ICD Codes: E78.5 - Hyperlipidemia, unspecified Status: Chronic Plan: Continue aspirin [place] fatty acid supplement held (8) DMII (diabetes mellitus, type 2) ICD Codes: E11.9 - Type 2 diabetes mellitus without complications Status: Chronic Plan: continue to monitor Continue with metformin 500 mg p.o. twice daily Bedside glucose checks Hypoglycemic protocol Low-dose sliding scale (9) Status post total hip replacement, left ICD Codes: Z96.642 - Presence of left artificial hip joint Status: Acute Plan: Patient with history of total left hip replacement done in 2016 (10) AICD (automatic cardioverter/defibrillator) present ICD Codes: Z95.810 - Presence of automatic (implantable) cardiac defibrillator Status: Chronic Plan: Stable Patient follows with splicer machine operator Dr. Bee (11) History of breast cancer ICD Codes: Z85.3 - Personal history of malignant neoplasm of breast Status: Chronic Plan: Patient history of left breast cancer status post radiation chemotherapy Patient currently in remission (12) Left bundle branch block ICD Codes: I44.7 - Left bundle-branch block, unspecified Status: Chronic Plan: Stable (13) Leukocytosis ICD Codes: D72.829 - Elevated white blood cell count, unspecified Status: Acute Plan: Continue to monitor Follow-up repeat CBC in the morning (14) Nutrition, metabolism, and development symptoms ICD Codes: R63.8 - Other symptoms and signs concerning food and fluid intake Plan: Fluids: not indicated, pt tolerating po Electrolytes: replete as needed, continue to monitor Nutrition: 2000 ADA carb diet DVT prophylaxis: lovenox 40mg QD (Leny Blair MD, R1) Problem Qualifiers (1) Osteoarthritis of right hip: Qualified Codes: M16.11 - Unilateral primary osteoarthritis, right hip Leny Blair MD, R1 October 26, 2017 12:21 Jessica Brown MD October 27, 2017 10:06
[2017-10-26] MEDS ORDERED: CARV6.252 PO (14:56)
--- NOTE | 2017-10-26 15:00 | HHI.DCPOC ---
Discharge Care Plan Diagnosis: (1) HTN (hypertension) (2) Impaired mobility and activities of daily living (3) DMII (diabetes mellitus, type 2) (4) Status post total hip replacement, left (5) Neuropathy Goals to Promote Your Health * To prevent worsening of your condition and complications * To maintain your health at the optimal level Directions to Meet Your Goals Take your medications as prescribed Follow your dietary instruction Follow activity as directed Keep your appointments as scheduled Take your immunizations and boosters as scheduled If your symptoms worsen call your PCP, if no PCP go to Urgent Care Center or Emergency Room Smoking is Dangerous to Your Health. Avoid second hand smoke Call the 24-hour hour crisis hotline for domestic abuse at Leny Blair MD, R1 October 26, 2017 15:00
--- NOTE | 2017-10-26 15:02 | HHI.DS ---
Discharge Summary Admission Date October 23, 2017 at 06:17 Admitting Diagnosis (1) Status post right hip replacement Plan: Patient is postop day 2 from right total hip replacement arthroplasty. c/w physical therapy and Occupational Therapy Pain control: IV Tylenol Q12hr Percocet p.o. Q6hr per pain scale Morphine 3 mg IV Q3h as needed for breakthrough pain ICD Codes: Z96.641 - Presence of right artificial hip joint Status: Acute (2) Osteoarthritis of right hip Plan: See plan above ICD Codes: M16.11 - Unilateral primary osteoarthritis, right hip (3) Neuropathy Plan: Patient history of bilateral lower extremity neuropathy, worse at night Continue with gabapentin 900 daily ICD Codes: G62.9 - Polyneuropathy, unspecified Status: Chronic (4) HTN (hypertension) Plan: Stable 100s/50s lisinopril held due to low BP yesterday Carvedilol 12.5 mg QD decreased to 6.25 mg QD Continue with home medication Monitor vital signs ICD Codes: I10 - Essential (primary) hypertension Status: Chronic (5) Anemia Plan: H/H today ./.3 Continue to monitor ICD Codes: D64.9 - Anemia, unspecified Status: Acute (6) Impaired mobility and activities of daily living Plan: Continue with PT and OT ICD Codes: Z74.09 - Other reduced mobility Status: Acute (7) HLD (hyperlipidemia) Plan: Continue aspirin [place] fatty acid supplement held ICD Codes: E78.5 - Hyperlipidemia, unspecified Status: Chronic (8) DMII (diabetes mellitus, type 2) Plan: Blood glucose of 200s range, continue to monitor Continue with metformin 500 mg p.o. twice daily Bedside glucose checks Hypoglycemic protocol Low-dose sliding scale ICD Codes: E11.9 - Type 2 diabetes mellitus without complications Status: Chronic (9) Status post total hip replacement, left Plan: Patient with history of total left hip replacement done in 2016 ICD Codes: Z96.642 - Presence of left artificial hip joint Status: Acute (10) AICD (automatic cardioverter/defibrillator) present Plan: Stable Patient follows with plating tank operator apprentice Dr. Bee ICD Codes: Z95.810 - Presence of automatic (implantable) cardiac defibrillator Status: Chronic (11) History of breast cancer Plan: Patient history of left breast cancer status post radiation chemotherapy Patient currently in remission ICD Codes: Z85.3 - Personal history of malignant neoplasm of breast Status: Chronic (12) Left bundle branch block Plan: Stable ICD Codes: I44.7 - Left bundle-branch block, unspecified Status: Chronic (13) Leukocytosis Plan: Continue to monitor Follow-up repeat CBC in the morning ICD Codes: D72.829 - Elevated white blood cell count, unspecified Status: Acute (14) Nutrition, metabolism, and development symptoms Plan: Fluids: not indicated, pt tolerating po Electrolytes: replete as needed, continue to monitor Nutrition: 2000 ADA carb diet DVT prophylaxis: lovenox 40mg QD ICD Codes: R63.8 - Other symptoms and signs concerning food and fluid intake Brief History Patient is a 82-year-old female with past medical history of diabetes, hypertension, left bundle branch block status post defibrillator/pacemaker placement presented to [facility] for elective right hip replacement. Patient is postop day 1 from elective right total hip replacement arthroplasty. Patient seen and examined at bedside this afternoon. Patient stated right hip pain is currently 5/10, worse with movement. However she was not able to sleep due to severe right hip pain last night. Denies any chest pain, shortness of breath, nausea /vomiting. Denies any flatus, bowel movement. Patient has voided 3 times so far. Tolerating fluids well. No other complaints. CBC/BMP: 10/25/17 0756 10/25/17 0756 Significant Findings Laboratory Tests Test 10/24/17 04:24 10/24/17 15:17 10/25/17 07:56 Hemoglobin 10.7 GM/DL (11.6-15.3) 10.1 GM/DL (11.6-15.3) 10.4 GM/DL (11.6-15.3) Hematocrit 31.3 % (35.0-46.0) 30.3 % (35.0-46.0) 30.3 % (35.0-46.0) White Blood Count 12.9 TH/MM3 (4.0-11.0) Red Blood Count 3.36 MIL/MM3 (4.00-5.30) 3.40 MIL/MM3 (4.00-5.30) Neutrophils (%) (Auto) 79.6 % (16.0-70.0) 73.6 % (16.0-70.0) Monocytes (%) (Auto) 9.3 % (0.0-8.0) 9.7 % (0.0-8.0) Neutrophils # (Auto) 10.2 TH/MM3 (1.8-7.7) Monocytes # (Auto) 1.2 TH/MM3 (0-0.9) Blood Urea Nitrogen 25 MG/DL (7-18) 20 MG/DL (7-18) Random Glucose 139 MG/DL (74-106) Calcium Level 8.2 MG/DL (8.5-10.1) 8.0 MG/DL (8.5-10.1) Sodium Level 133 MEQ/L (136-145) 135 MEQ/L (136-145) Chloride Level 97 MEQ/L (98-107) Estimat Glomerular Filtration Rate 66 ML/MIN (>89) 75 ML/MIN (>89) Albumin 2.8 GM/DL (3.4-5.0) Carbon Dioxide Level 33.1 MEQ/L (21.0-32.0) Anion Gap 2 MEQ/L (5-15) PE at Discharge GENERAL: This is a well-nourished, well-developed patient, sitting in chair in no apparent distress. SKIN: No rashes, ecchymoses or lesions. Cool and dry. HEAD: Atraumatic. Normocephalic. EYES: Pupils equal round and reactive. Extraocular motions intact. No scleral icterus. No injection or drainage. ENT: Nose without bleeding, purulent drainage or septal hematoma. Throat without erythema, tonsillar hypertrophy or exudate. Uvula midline. Airway patent. NECK: Trachea midline. No JVD or lymphadenopathy. Supple, nontender, no meningeal signs. CARDIOVASCULAR: Normal S1 and S2. Regular rate and rhythm without murmurs, gallops, or rubs. RESPIRATORY: Mild atelectasis at bases BL. No wheezes, rales, or rhonchi. GASTROINTESTINAL: Abdomen soft, non-tender, nondistended. No hepato-splenomegaly , or palpable masses. No guarding. MUSCULOSKELETAL: Extremities without clubbing, cyanosis, or edema. No joint tenderness, effusion, or edema noted. No calf tenderness BL. +1 Posterior tibial pulse on Right LE. +1 DP pulse on Left LE. Dressing on Right hip c/d/i. NEUROLOGICAL: Awake and alert. Sensory grossly within normal limits. 4/5 strength of Left LE. 3/5 strength of Right LE, limited by pain. Normal speech. Pt Condition on Discharge: Good Discharge Disposition: Discharge to SNF Discharge Instructions DIET: Follow Instructions for: Diabetic Diet, High Fiber Diet Activities you can perform: Weight Bearing as [place] Activities to Avoid: Strenuous Activity Other Activity Instructions: Anterior YOSHI protocol Leny Blair MD, R1 October 26, 2017 15:02
== END 2017-10-26 16:13 | DRG 470 ==
LOC: HSDI 06:17 → N06A 14:47
PROVIDERS: ADMIT Orthopaedic Surgery Orthopaedic Surgery of the Spine; ATTEND Orthopaedic Surgery Orthopaedic Surgery of the Spine
PROC: 0SR902A Replacement of Right Hip Joint with Metal on Polyethylene Synthetic Substitute, Uncemented, Open Approach (ICD-10-PCS; principal; 2017-10-23 09:19)
DX: M16.11 Unilateral primary osteoarthritis, right hip (principal); E11.42 Type 2 diabetes mellitus with diabetic polyneuropathy; E11.65 Type 2 diabetes mellitus with hyperglycemia; E78.5 Hyperlipidemia, unspecified; I44.7 Left bundle-branch block, unspecified; Z95.810 Presence of automatic (implantable) cardiac defibrillator; Z85.3 Personal history of malignant neoplasm of breast; M17.0 Bilateral primary osteoarthritis of knee; Z92.3 Personal history of irradiation; Z92.21 Personal history of antineoplastic chemotherapy; I10 Essential (primary) hypertension; I25.10 Atherosclerotic heart disease of native coronary artery without angina pectoris; Z79.84 Long term (current) use of oral hypoglycemic drugs; Z79.82 Long term (current) use of aspirin; G47.00 Insomnia, unspecified; Z82.49 Family history of ischemic heart disease and other diseases of the circulatory system; Z83.3 Family history of diabetes mellitus; Z96.642 Presence of left artificial hip joint; Z80.0 Family history of malignant neoplasm of digestive organs; D64.9 Anemia, unspecified; R20.0 Anesthesia of skin; D72.829 Elevated white blood cell count, unspecified
CPT/HCPCS: 73502; 76000; 80048; 80053; 82948; 83036; 85014; 85018; 85025; 86850; 86900; 86901; 86920; 94150; C1776; C9290; J0131; J0690; J1100; J1580; J1650; J1885; J2270; J2370; J2405; J2710; J3010; J3370; J7030; J7050; J7120